=== PATIENT | male | born 1985 | race Two or more races ===

== ENCOUNTER 2019-04-30 07:26 | Day surgery (SDC) | payer OTHER ==
[~2019-04-30] VITALS: Ht 167.6 cm; Wt 84.8 kg
[~2019-04-30 07:26] MED LIST: NS 1,000 ML IV SCH
[2019-04-30] MEDS ORDERED: LIDOCAINE 2% INJ 100 MG/5 ML SDV (FOR ANES.) As Ordered ONE (08:53)
[2019-04-30] MEDS ORDERED: propofoL 200 MG/20 ML VIAL As Ordered ONE (08:53)
--- NOTE | 2019-04-30 09:43 | ROOR ---
Patient Name: Melody Fernandez Procedure Date: 04/30/2019 9:15 AM Date of : 1985 Age: 34 Room: [facility] Gender: Male Note Status: Finalized Procedure: Total Colonoscopy to Cecum Indications: Rectal bleeding Providers: Nelson Gloden MD Referring MD: SIENA WREN MD Requesting Provider: Medicines: Monitored Anesthesia Care Complications: No immediate complications. Procedure: Pre-Anesthesia Assessment: - The heart rate, respiratory rate, oxygen saturations, blood pressure, adequacy of pulmonary ventilation, and response to care were monitored throughout the procedure. The Colonoscope was introduced through the anus and advanced to the cecum, identified by appendiceal orifice and ileocecal valve. The colonoscopy was performed without difficulty. The patient tolerated the procedure well. The quality of the bowel preparation was excellent. Findings: The perianal and digital rectal examinations were normal. No other significant abnormalities were identified in a careful examination of the remainder of the colon. The exam was otherwise without abnormality on direct and retroflexion views. Impression: - The examination was otherwise normal on direct and retroflexion views. - No specimens collected. - The exam was otherwise normal to the cecum. Recommendation: - Discharge patient to home. - High fiber diet. - Repeat colonoscopy at age 48 for screening purposes. - Return to referring physician. - The findings and recommendations were discussed with the patient's family. Nelson Golden MD Nelson Golden MD 04/30/2019 9:43:24 AM Electronically signed by Nelson Golden MD Number of Addenda: 0 Note Initiated On: 04/30/2019 9:15 AM Estimated Blood Loss: Estimated blood loss: none.
[2019-04-30 10:02] VITALS: BP 124/83
== END 2019-04-30 10:12 | disposition home or self-care (01) ==
LOC: M OPP 07:26
PROVIDERS: ATTEND Internal Medicine Gastroenterology
DX: K62.5 Hemorrhage of anus and rectum (principal)

== ENCOUNTER 2019-07-28 12:39 | Emergency (ER) | payer OTHER ==
[~2019-07-28] VITALS: Ht 160 cm; Wt 90.6 kg
--- NOTE | 2019-07-28 13:50 | REP ---
Clinical: Nontraumatic heel pain Technique: AP, lateral, bilateral oblique views right foot . Findings: The osseous structures and joint spaces are intact and normal. There is no evidence for acute fracture or dislocation. Surrounding soft tissues are unremarkable. No subcutaneous emphysema or radiodense foreign body. Impression: Normal right foot radiograph series. Electronically Signed by Noe Smith MD 07/28/2019 01:41 P
[2019-07-28 14:15] VITALS: BP 138/83
== END 2019-07-28 14:19 | disposition home or self-care (01) ==
LOC: M ED 12:39
DX: M79.671 Pain in right foot (principal)

== ENCOUNTER 2019-12-13 19:48 | Emergency (ER) | payer OTHER ==
[~2019-12-13] VITALS: Ht 167.6 cm; Wt 93.1 kg
[2019-12-13 20:39] LABS: HEMATOCRIT 46.4 % (42.0-52.0); HEMOGLOBIN 15.1 g/dl (13.5-17.5); MEAN CORPUSCULAR HGB CONC 32.5 g/dl (32.0-36.5); MEAN CORPUSCULAR VOLUME 92.1 fl (80.0-96.0); PLATELET COUNT, AUTOMATED 158 10^3/uL (150-450); RED BLOOD COUNT 5.04 10^6/uL (4.30-6.10); WHITE BLOOD COUNT 6.5 10^3/uL (4.0-10.0)
[2019-12-13 20:57] LABS: ERYTHROCYTE SEDIMENTATION RATE 1 mm/hr (0-15)
[2019-12-13 20:58] LABS: C REACTIVE PROTEIN QUANTITATIV < 0.30 MG/DL (0.00-0.30); URIC ACID 7.1 MG/DL (3.5-7.2)
[2019-12-13] MEDS ORDERED: INDO50CA91 PO (21:21)
[2019-12-13 21:25] VITALS: BP 142/94
--- NOTE | 2019-12-13 21:47 | REPVR ---
PROCEDURE INFORMATION: Exam: XR Right Ankle Exam date and time: 12/13/2019 8:20 PM Age: 34 years old Clinical indication: Other: Pain TECHNIQUE: Imaging protocol: XR Right ankle. Views: 1 or 2 views. COMPARISON: CR Foot, complete 07/28/2019 1:22 PM FINDINGS: Bones/joints: Broad-based exostosis projecting off the posteromedial aspect of the distal tibia. Traction osteophyte on the dorsal calcaneus at the Achilles tendon insertion site. No fracture. Soft tissues: Normal. IMPRESSION: 1. No acute findings. 2. Benign exostosis projecting off the distal tibia posteromedially. PROCEDURE INFORMATION: Exam: XR Left Ankle Exam date and time: 12/13/2019 8:20 PM Age: 34 years old Clinical indication: Other: Pain TECHNIQUE: Imaging protocol: XR Left ankle. Views: 1 or 2 views. COMPARISON: CR Foot, complete 07/28/2019 1:22 PM FINDINGS: Bones/joints: Traction osteophyte on the dorsal calcaneus at the Achilles tendon insertion site. No fracture. Soft tissues: Normal. IMPRESSION: 1. No acute findings. Electronically signed by: Savanah Feliz On 12/13/2019 21:47:32 PM
[2019-12-15 09:14] LABS: TOTAL 25(OH) VITAMIN D 20.8 NG/ML (30.0-100.0)
== END 2019-12-13 21:30 | disposition home or self-care (01) ==
LOC: M ED 19:48
DX: M19.071 Primary osteoarthritis, right ankle and foot (principal)

== ENCOUNTER 2020-06-30 06:44 | Day surgery (SDC) | payer OTHER ==
[~2020-06-30] VITALS: Ht 167.6 cm; Wt 93.0 kg
[~2020-06-30 06:44] MED LIST changes: +INDO50CA91 PO; +NAPR500T6 PO; -NS 1,000 ML IV SCH
[2020-06-30] MEDS ORDERED: ceFAZolin SOD 2 GM in IV 1 EA IV ONE (07:00)
[2020-06-30] MEDS ORDERED: LR 1,000 ML IV ONE (07:00)
[2020-06-30] MEDS ORDERED: dexameTHASONE 4 MG/ML 1ML VIAL (J1100 PER 1MG) As Ordered ONE (08:30)
[2020-06-30] MEDS ORDERED: BUPIVACAINE HCL 0.5% 10ML VIAL As Ordered ONE (08:30)
[2020-06-30] MEDS ORDERED: LIDOCAINE 1% MDV 20ML VIAL As Ordered ONE (08:31)
[2020-06-30] MEDS ORDERED: fentaNYL 250 MCG/5 ML INJECTION (J3010) As Ordered ONE (08:41)
[2020-06-30] MEDS ORDERED: MIDAZOLAM INJ 2MG/2ML VIAL (J2250 PER 1MG) As Ordered ONE (08:42)
[2020-06-30] MEDS ORDERED: LIDOCAINE 2% 100MG/5ML SDV (FOR ANES.) As Ordered ONE (09:01)
[2020-06-30] MEDS ORDERED: propofoL 200 MG/20 ML VIAL As Ordered ONE (09:01)
--- NOTE | 2020-06-30 10:04 | RO ---
OPERATIVE NOTE DATE OF OPERATION: 06/30/2020 PREOPERATIVE DIAGNOSIS: Right foot chronic Achilles tendonitis. POSTOPERATIVE DIAGNOSIS: Right foot chronic Achilles tendonitis. PROCEDURE: Right foot topaz procedure, Achilles tendon. SURGEON: Jigar Chu DPM CLERK OF SCALES: None. ANESTHESIA: Monitored anesthesia care, preop injection of 20 mL of 1:1 mixture of 1% Lidocaine plain and 0.5% Marcaine plain. ESTIMATED BLOOD LOSS: Minimal. MATERIALS: None. COMPLICATIONS: None. CONDITION: Stable. INDICATIONS: Melody Huitron is a 35-year-old male who presents to [facility] with painful chronic Achilles tendonitis. He has undergone numerous conservative treatments without relief. He presents today for surgical correction. Patient site and side were identified in preoperative area. Consent was reviewed and obtained. Risks, complications and alternatives to the procedure were explained to the patient in detail, all questions were answered. DESCRIPTION OF PROCEDURE: The patient was brought to the operating room and placed on the operating table in prone position. Monitored anesthesia care was delivered by the anesthesia team. Preoperative injection of 20 mL of 1:1 mixture of 1% Lidocaine plain and 0.5% Marcaine plain was injected into the right calf. Tourniquet was applied to the calf and inflated at 250 mmHg. A grid around the Achilles tendon was made using skin marker with dots approximately 7 mm apart. A 0.62 K-wire was used to perforate the skin to allow the microdebrider to be placed and then using the Severance microdebriding wand each dot on the grid was debrided using the 0.5 second debride time delivered by the wand. Following this sterile dressings were applied. Tourniquet was deflated and patient was brought to PACU with vital signs stable and neurovascular status intact. He will be partial weightbearing and follow up in office in two days.
[2020-06-30 10:30] VITALS: BP 125/72
== END 2020-06-30 11:04 | disposition home or self-care (01) ==
LOC: M SDC 06:44
PROVIDERS: ATTEND Podiatrist Foot & Ankle Surgery
DX: M76.61 Achilles tendinitis, right leg (principal); K21.9 Gastro-esophageal reflux disease without esophagitis; Z79.899 Other long term (current) drug therapy
CPT/HCPCS: 28899; J0690; J1100; J2250; J3010

== ENCOUNTER 2020-12-01 09:43 | Day surgery (SDC) | payer OTHER ==
[~2020-12-01] VITALS: Ht 167.6 cm; Wt 93.9 kg
[~2020-12-01 09:43] MED LIST changes: +LIDOCAINE 1% MDV 20ML VIAL SQ PRN; +LR 1,000 ML IV ONE; +ceFAZolin SOD 1 GM in D5W MINI-BAG PLUS 50 ML IV ONE; +propofoL 500 MG/50 ML VIAL As Ordered ONE
[2020-12-01] MEDS ORDERED: AMOX500C PO (12:43)
[2020-12-01] MEDS ORDERED: IBUP200C25 PO (12:43)
[2020-12-01] MEDS ORDERED: LIDOCAINE 2% 100MG/5ML SDV (FOR ANES.) As Ordered ONE (13:43)
[2020-12-01] MEDS ORDERED: fentaNYL 100 MCG/2 ML INJECTION (J3010) As Ordered ONE (13:44)
[2020-12-01] MEDS ORDERED: MIDAZOLAM INJ 2MG/2ML VIAL (J2250 PER 1MG) As Ordered ONE (13:44)
[2020-12-01] MEDS ORDERED: LIDOCAINE 1% SDV 30ML VIAL As Ordered ONE (14:59)
[2020-12-01] MEDS ORDERED: BUPIVACAINE HCL 0.5% 10ML VIAL As Ordered ONE ×2 (14:59→15:05)
[2020-12-01] MEDS ORDERED: dexameTHASONE 4 MG/ML 1ML VIAL (J1100 PER 1MG) As Ordered ONE ×2 (14:59→15:05)
[2020-12-01] MEDS ORDERED: OXYC1TAB23 PO (16:29)
[2020-12-01 17:00] VITALS: BP 157/90
--- NOTE | 2020-12-02 10:02 | RO ---
OPERATIVE NOTE DATE OF OPERATION: 12/01/2020 PREOPERATIVE DIAGNOSIS: Bilateral gastrocnemius equinus. POSTOPERATIVE DIAGNOSIS: Bilateral gastrocnemius equinus. PROCEDURE: Bilateral gastrocnemius recession. SURGEON: Jigar Chu DPM HEEL SCORER: ANESTHESIA: Monitored anesthesia care, preop injection of 30 mL of 1:1 mixture of 1% Lidocaine plain and 0.5% Marcaine plain. ESTIMATED BLOOD LOSS: Minimal. MATERIALS: 3-0 and 4-0 Vicryl, 4-0 nylon. INJECTABLES: 2 mL Decadron 4 mg per mL. COMPLICATIONS: None. CONDITION: Stable. INDICATIONS: Melody Huitron is a 35-year-old male who presents with painful Achilles tendon bilateral feet. He presents today for surgical correction. Patient site and side were identified and marked in preoperative area. Consent was reviewed and obtained. Risks, complications and alternatives to the procedure were explained to the patient in detail, all questions were answered. DESCRIPTION OF PROCEDURE: The patient was brought to the operating room and placed on the operating table in prone position. Monitored anesthesia care was delivered by the anesthesia team. Preop injection of 30 mL of 1:1 mixture of 1% Lidocaine plain and 0.5% Marcaine plain were injected into both calves. Both legs were prepped and draped. Tourniquets were applied to the thighs, inflated to 250 mmHg. On both calves linear incision was made just medial to the midline and carried through with #15 blade. The gastrocnemius tendon was identified and transected taking care not to cut the underlying soleus muscle beneath it. Care was taken to protect the sural nerve. Improvement in dorsiflexion was immediately noted bilaterally. Site was irrigated with normal saline. Closure was performed with 3-0 and 4-0 Vicryl and 4-0 nylon. Sterile dressings were applied. Tourniquets deflated. The patient was brought to PACU with vital signs stable and neurovascular status intact. He will be partial weightbearing and follow up in office next week.
== END 2020-12-01 17:15 | disposition home or self-care (01) ==
LOC: M SDC 09:43
PROVIDERS: ATTEND Podiatrist Foot & Ankle Surgery
DX: M67.01 Short Achilles tendon (acquired), right ankle (principal); M67.02 Short Achilles tendon (acquired), left ankle; Z79.899 Other long term (current) drug therapy
CPT/HCPCS: 27687; 97116; J0690; J1100; J2250; J3010

== ENCOUNTER 2020-12-29 06:41 | Day surgery (SDC) | payer OTHER ==
[~2020-12-29] VITALS: Ht 167.6 cm; Wt 95.3 kg
[~2020-12-29 06:41] MED LIST changes: +AMOX500C PO; +IBUP200C25 PO; -LIDOCAINE 1% MDV 20ML VIAL SQ PRN; +LIDOCAINE 2% 100MG/5ML SDV (FOR ANES.) As Ordered ONE; -LR 1,000 ML IV ONE; +NS 1,000 ML IV ONE; +OXYC1TAB23 PO; -ceFAZolin SOD 1 GM in D5W MINI-BAG PLUS 50 ML IV ONE; +fentaNYL 100 MCG/2 ML INJECTION (J3010) As Ordered ONE; +propofoL 200 MG/20 ML VIAL As Ordered ONE; -propofoL 500 MG/50 ML VIAL As Ordered ONE
--- OUTSIDE RECORDS SUMMARY | 2020-12-29 06:46 | CCD | Continuity of Care Document ---
Author Author Melody KAPLAN DPM Organization Unknown Address [address] [facility] [address], [address] [place] [address] Phone [phone] Care Team Providers Care Pedodontist Name Role Phone Aureliano Boles, [facility] AUTM [phone] [facility] Unavailable [facility] Problems Active Problems Provider Date Tendon contracture Jigar Kaplan DPM Onset: 10/10/2019 Other synovitis and tenosynovitis, right ankle and foot Andr lorene Kaplan DPM Onset: 10/10/2019 Calcaneal spur Jigar Kaplan DPM Onset: 10/10/2019 Tendon contracture Jigar Kaplan DPM Onset: 12/10/2020 Social History Type Date Description Comments Sex Unknown ETOH Use Rarely consumes alcohol Tobacco Use Start: Unknown Patient has never smoked Allergies and adverse reactions Description No Known Drug Allergies Medications Active Medications SIG Qnty Indications Ordering Provide r Date Hydrocodone-Acetaminophen 5-325mg Tablets 1 tablets by mouth every 8 hours as needed pain 20tabs Jigar Kaplan DPM 08/03/2020 Prednisone 20mg Tablets 4 tablets day 1-3 (2 in the morning, 1 noon, 1 evening), 3 tablets day 4-7 , 2 tablets day 8-10, 1 tablet day 10-14 follow 35tabs Jigar Kaplan DPM 04/2019 Diclofenac Sodium 1% Gel apply 1 gram to feet 2-3 times daily 500units Jigar Kaplan DPM 2019 Naproxen 500mg Tablets 1 tab twice daily with food 60tabs Jigar Kaplan DPM 10/10/2019 Immunizations Description No Information Available Vital Signs Date Vital Result Comment 09/23/2020 11:13am Height 66 inches 5'6" Weight 201.00 lb BP Systolic 144 mmHg BP Diastolic 92 mmHg Heart Rate 74 /min BMI (Body Mass Index) 32.4 kg/m2 03/09/2020 9:00am Height 66 inches 5'6" Weight 190.00 lb BP Systolic 118 mmHg BP Diastolic 90 mmHg Heart Rate 70 /min BMI (Body Mass Index) 30.7 kg/m2 Results Description No Information Available Procedures Date Code Description Status 12/01/2020 72133 Gastrocnemius Recession Complete d 12/01/2020 51148 Gastrocnemius Recession Complete d 09/23/2020 25481 Office/Outpatient Established Lo w MDM 20-29 Min Completed 06/30/2020 85255 Repair Achilles Tendon Primary C ompleted Medical Devices Description No Information Available Encounters Type Date Location Provider Dx Diagnosis Office Visit 12/06/2020 11:00a [facility] Jigar Kaplan DPM M67.00 Short Achilles tendon (acquired), unspecified ankle Z48.89 Encounter for other specifie d surgical aftercare Office Visit 09/23/2020 11:15a [facility] Jigar Kaplan DPM M67.00 Short Achilles tendon (acquired), unspecified ankle M65.879 Other synovitis and tenosyno vitis, unsp ankle and foot Office Visit 08/19/2020 11:15a [facility] Jigar Kaplan DPM Z48.89 Encounter for other specified surgical aftercare Office Visit 07/15/2020 8:45a [facility] Jigar Kaplan DPM M67.01 Short Achilles tendon (acquired), right ankle Assessments Date Code Description Provider 12/06/2020 M67.00 Short Achilles tendon (acquired) , unspecified ankle Jigar Kaplan DPM 12/06/2020 Z48.89 Encounter for other specified [place] Jigar Kaplan DPM 12/01/2020 M67.01 Short Achilles tendon (acquired) , right ankle Jigar Kaplan DPM 12/01/2020 M67.02 Short Achilles tendon (acquired) , left ankle Jigar Kaplan, DPM 09/23/2020 M67.00 Short Achilles tendon (acquired) , unspecified ankle Jigar Kaplan, DPM 09/23/2020 M65.879 Other synovitis and tenosynovitis, unspecified ankle and foot Jigar Kaplan, DPM 08/19/2020 Z48.89 Encounter for other specified [place] aftercare Jigar Kaplan, DPM 07/15/2020 M67.01 Short Achilles tendon (acquired) , right ankle Jigar Kaplan, DPM 07/01/2020 M67.01 Short Achilles tendon (acquired) , right ankle Jigar Kaplan, DPM 07/01/2020 Z48.89 Encounter for other specified [place] aftercare Jigar Kaplan, BHARATM 06/30/2020 M67.01 Short Achilles tendon (acquired) , right ankle Jigar Kaplan DPM Plan of Treatment Future Appointment(s):* 12/20/2020 11:00 am - Jigar Kaplan DPM at [place] [facility] Functional Status Description No Information Available Mental Status Description No Information Available Referrals Refer to Dr Reason for Referral Status Appt Date Jigar Kaplan DPM SX Created [address] [place] [address] [phone] Jigar Kaplan DPM Created [address] [place] [address] [phone] Jigar Kaplan DPM Created [address] [place] [phone]
--- OUTSIDE RECORDS SUMMARY | 2020-12-29 06:46 | CCD | Continuity of Care Document ---
Author Author Melody GOLDEN M.D Organization Unknown Address [address] [place] [id number] Phone [phone] Care Team Providers Care Inspector Aligning Name Role Phone Tom Spencer AUTM Problems Active Problems Provider Date Gastroesophageal reflux disease Nelson Golden M.D. Ons et: 12/14/2020 Hemorrhage of rectum and anus Nelson Golden M.D. Onset : 04/10/2019 Social History Type Date Description Comments Sex Unknown ETOH Use Never used alcohol Tobacco Use Start: Unknown Patient has never smoked Allergies and adverse reactions Description No Known Drug Allergies Medications Active Medications SIG Qnty Indications Ordering Provide r Date Gaviscon Extra Strength 160-105mg Chewtabs 1 tab by mouth four times a day before meals,and at bedtime 360u nits Nelson Golden M.D. 12/14/2020 Proctosol HC 2.5% Cream apply to rectum 2- 3 times a day as needed for rectal bleeding 28.35units Nelson Golden M.D. 04/30/2019 Oxycodone-Acetaminophen 5-325mg Tablets Unknown Hydrocodone Bitartrate/Acetaminophen 5-325mg Tablets Unknown Ibuprofen 800mg Tablets Unknown Pantoprazole Sodium 40mg Tablets D R 1 tab by mouth before meals 180tabs Nelson Golden M.D. 0 Naproxen 500mg Tablets Unknown Voltaren 1% Gel Unknown Immunizations Description No Information Available Vital Signs Date Vital Result Comment 12/14/2020 9:35am Height 66 inches 5'6" Weight 205.00 lb BP Systolic 130 mmHg BP Diastolic 82 mmHg Heart Rate 69 /min BMI (Body Mass Index) 33.1 kg/m2 Weight 92.988 kg Body Temperature 97.3 F 04/10/2019 2:01pm Height 66 inches 5'6" Weight 190.00 lb BP Systolic 128 mmHg BP Diastolic 76 mmHg Heart Rate 64 /min BMI (Body Mass Index) 30.7 kg/m2 Weight 86.184 kg Results Description No Information Available Procedures Description No Information Available Medical Devices Description No Information Available Encounters Description No Information Available Assessments Date Code Description Provider 12/14/2020 K21.9 Gastroesophageal reflux disease Nelson Golden M.D. Plan of Treatment Future Appointment(s):* 12/29/2020 7:30 am - Nelson Golden M.D. at [facility] 12/14/2020 - Nelson Golden M.D.* K21.9 Gastroesophageal reflux disease* Comments:* 35 yo ADMS who was referred for a colonoscopy due to a h/o rectal bleeding. No apparent hemorroids. No weight loss. No c/o abdominal pain, weight loss, change in bowel habits, or rectal bleeding. No family h/o colon cancer. No h/o chest pain, or sob. His colonoscopy revealed hemorrhoids.He is now here for refractory heartburn. No dysphagia. He has nighttime heartburn. Pantoprazole once a day is not helping enough. Plan:1. Egd2. PPI bid3. Gaviscon Functional Status Description No Information Available Mental Status Description No Information Available Referrals Refer to Dr Reason for Referral Status Appt Date Nelson Golden M.D. Created [address] [place] [phone]
--- OUTSIDE RECORDS SUMMARY | 2020-12-29 06:46 | CCD ---
Author Author [facility] Organization [facility] Address Unknown Phone Unavailable Care Team Providers Care Agriscience Teacher Name Role Phone Annie KAPLAN DPM Unavailable Unavailable Annie KAPLAN DPM Unavailable Unavailable Annie KAPLAN DPM Unavailable Unavailable Annie KAPLAN DPM Unavailable Unavailable Annie KAPLAN DPM Unavailable Unavailable Annie KAPLAN DPM Unavailable Unavailable Annie KAPLAN DPM Unavailable Unavailable Annie KAPLAN DPM Unavailable Unavailable Annie KAPLAN DPM Unavailable Unavailable Annie KAPLAN DPM Unavailable Unavailable Annie KAPLAN DPM Unavailable Unavailable Annie KAPLAN DPM Unavailable Unavailable Annie KAPLAN DPM Unavailable Unavailable Annie KAPLAN DPM Unavailable Unavailable Annie KAPLAN DPM Unavailable Unavailable Annie KAPLAN DPM Unavailable Unavailable Annie KAPLAN DPM Unavailable Unavailable Annie KAPLAN DPM Unavailable Unavailable Annie KAPLAN DPM Unavailable Unavailable Annie KAPLAN DPM Unavailable Unavailable Annie KAPLAN DPM Unavailable Unavailable Annie KAPLAN DPM Unavailable Unavailable Annie KAPLAN DPM Unavailable Unavailable Annie KAPLAN DPM Unavailable Unavailable Annie KAPLAN DPM Unavailable Unavailable Annie KAPLAN DPM Unavailable Unavailable Annie KAPLAN DPM Unavailable Unavailable Annie KAPLAN DPM Unavailable Unavailable Annie KAPLAN DPM Unavailable Unavailable Annie KAPLAN DPM Unavailable Unavailable Annie KAPLAN DPM Unavailable Unavailable Re-disclosure Warning The records that you are about to access may contain information from federally-assisted alcohol or drug abuse programs. If such information is present, then the following federally mandated warning applies: This information has been disclosed to you from records protected by federal confidentiality rules (42 CFR part 2). The federal rules prohibit you from making any further disclosure of this information unless further disclosure is expressly permitted by the written consent of the person to whom it pertains or as otherwise permitted by 42 CFR part 2. A general authorization for the release of medical or other information is NOT sufficient for this purpose. The Federal rules restrict any use of the information to criminally investigate or prosecute any alcohol or drug abuse patient.The records that you are about to access may contain highly sensitive health information, the redisclosure of which is protected by Article 27-F of the [facility] Public Health law. If you continue you may have access to information: Regarding HIV / AIDS; Provided by facilities licensed or operated by the [facility] Office of Mental Health; or Provided by the [facility] Office for People With Developmental Disabilities. If such information is present, then the following [facility] mandated warning applies: This information has been disclosed to you from confidential records which are protected by state law. State law prohibits you from making any further disclosure of this information without the specific written consent of the person to whom it pertains, or as otherwise permitted by law. Any unauthorized further disclosure in violation of state law may result in a fine or snf sentence or both. A general authorization for the release of medical or other information is NOT sufficient authorization for further disc losure. Encounters Encounter Providers Location Date Indications Data Source(s ) Office Visit Attender: BRANDON KAPLAN DPM [place] [facility] 06/2020 11:00:00 AM EDT [facility] Outpatient Attender: BRANDON KAPLAN DPM [place] [facility] 09/03 11:15:00 AM EDT [facility] 11:[facility]00 AM EDT [facility] Office Visit Attender[facility] BRANDON KAPLAN [facility] 07/03 08:45:00 AM EDT [facility] Outpatient Attender: BRANDON KAPLAN [facility] 07/2020 08:00:00 AM EST [facility] Outpatient Attender: BRANDON KAPLAN [facility] 04/2019 08:00:00 AM EST [facility] Outpatient Attender: BRANDON KAPLAN [facility] 12/04 09:00:00 AM EDT [facility] Medications Medication Brand Name Start Date Product Form Dose Route Admi nistrative Instructions Pharmacy Instructions Status Indications Reaction Description Data Source(s) Aluminum Hydroxide 160 MG / magnesium carbonate 105 MG Chewable Tablet Gaviscon Extra Strength 12/14/2020 12:00:00 AM EDT ORAL active [facility] ([facility]) Acetaminophen 325 MG / Hydrocodone Bitartrate 5 MG Ora l Tablet Hydrocodone-Acetaminophen 08/03/2020 12:00:00 AM EDT ORAL active [facility] Prednisone 20 MG Oral Tablet Prednisone 02/04/2020 12:00:00 AM EST active [facility] Insurance Providers Payer name Policy type / Coverage type Policy ID Covered alliance party ID Covered alliance party's relationship to gordillo Policy Gordillo Plan Information [facility] [employer] [id number] SP [id number] [facility] [employer] [id number] SP [id number] [facility] O [id number] S [id number] Problems, Conditions, and Diagnoses Code Display Name Description Problem Type Effective Dates Data Source(s) 086723684 Gastroesophageal reflux disease Gastroesophageal reflux disease Problem 12/14/2020 12:00:00 AM EDT [facility] 249040436 Tendon contracture Tendon contracture Problem 10/2020 12:00:00 AM EDT [facility] Surgeries/Procedures Procedure Description Date Indications Data Source(s) GASTROCNEMIUS RECESSION 12/01/2020 12:00:00 AM EDT [facility] GASTROCNEMIUS RECESSION 12/01/2020 12:00:00 AM EDT [facility] OFFICE OUTPATIENT VISIT 15 MINUTES 09/23/2020 12:00:00 AM EDT [facility] REPAIR PRIMARY OPEN/PRQ RUPTURED ACHILLES TENDON 06/30 12:00:00 AM EDT [facility] UNLISTED PROCEDURE FOOT/TOES 06/30/2020 12:00:00 AM ED T [facility] Results ID Date Data Source [id number] 02/17/2020 12:00:00 AM EST [facility] Name Value Range Interpretation Code Description Data Bea rce(s) Supporting Document(s) SARS coronavirus 2 Ag [facility] This lab was ordered by [facility] and reported by [facility]. ID Date Data Source [id number] 01/19/2020 12:00:00 AM EST [facility] Name Value Range Interpretation Code Description Data Bea rce(s) Supporting Document(s) SARS coronavirus 2 RNA [Presence] in Res piratory specimen by CAROL with probe detection [facility] This lab was ordered by [facility] and reported by [facility]. Procedure Social History No Information Vital Signs ID Date Data Source UNK Name Value Range Interpretation Code Description Data Source(s) Systolic blood pressure 130 mm[Hg] 130 mm[Hg] [facility] ([facility]) Body weight 205.00 [lb_av] 205.00 [lb_av] [facility] ([facility]) Body height 66 [in_i] 66 [in_i] [facility] 5'6" Diastolic blood pressure 82 mm[Hg] 82 mm[Hg] [facility]) Heart rate 69 /min 69 /min [facility] Body mass index (BMI) [Ratio] 33.1 kg/m2 33.1 k g/m2 [facility]) Body weight 92.988 kg 92.988 kg [facility] Body temperature 97.3 [degF] 97.3 [degF] [facility]) Body height 66 [in_i] 66 [in_i] [facility] 5'6" Body weight 201.00 [lb_av] 201.00 [lb_av] [facility] ([facility] Systolic blood pressure 144 mm[Hg] 144 mm[Hg] [facility] Diastolic blood pressure 92 mm[Hg] 92 mm[Hg] [facility] Body mass index (BMI) [Ratio] 32.4 kg/m2 32.4 k g/m2 [facility] Heart rate 74 /min 74 /min [facility] Heart rate 70 /min 70 /min [facility] Body height 66 [in_i] 66 [in_i] [facility] 5'6" Body weight 190.00 [lb_av] 190.00 [lb_av] [facility] Body mass index (BMI) [Ratio] 30.7 kg/m2 30.7 k g/m2 [facility] Systolic blood pressure 118 mm[Hg] 118 mm[Hg] [facility] Diastolic blood pressure 90 mm[Hg] 90 mm[Hg] [facility]
--- OUTSIDE RECORDS SUMMARY | 2020-12-29 06:46 | CCD | Continuity of Care Document ---
Author Author Melody KAPLAN DPM Organization Unknown Address [address] [place] [address], [address] [place] [address] Phone [phone] Care Team Providers Care Network Architect Name Role Phone Aureliano Boles, [facility] AUTM [phone] [facility] AUTM Unavailable Dee'[facility] AUTM Problems Active Problems Provider Date Tendon [...] Available Procedures Date Code Description Status 12/01/2020 75922 Gastrocnemius Recession Complete d 12/01/2020 08278 Gastrocnemius Recession Complete d 09/23/2020 53449 Office/Outpatient Established Lo w MDM 20-29 Min Completed 06/30/2020 79689 Repair Achilles Tendon Primary C ompleted Medical Devices Description No Information Available Encounters Type Date Location Provider Dx Diagnosis Office Visit 12/06/2020 11:00a [place] [facility] Jigar Kaplan DPM M67.00 Short Achilles tendon (acquired), unspecified ankle Z48.89 Encounter for other specifie d surgical aftercare Office Visit 09/23/2020 11:15a [place] [facility] Jigar Kaplan DPM M67.00 Short Achilles tendon (acquired), unspecified ankle M65.879 Other synovitis and tenosyno vitis, unsp ankle and foot Office Visit 08/19/2020 11:15a [place] [facility] Jigar Kaplan DPM Z48.89 Encounter for other specified surgical aftercare Office Visit 07/15/2020 8:45a [place] [facility] Jigar Kaplan DPM M67.01 Short Achilles [...] Kaplan DPM Plan of Treatment Future Appointment(s):* 01/10/2021 10:45 am - Jigar Kaplan DPM at [place] [facility] Functional Status Description No Information Available Mental Status Description No Information Available Referrals Refer to Dr Reason for Referral Status Appt Date Jigar Kaplan DPM SX Created [address] [place] [address] [phone] Jigar Kaplan DPM Created [address] [place] [address] [phone] Jigar Kaplan DPM Created [address] [place] [address] [phone]
--- OUTSIDE RECORDS SUMMARY | 2020-12-29 06:46 | CCD | Continuity of Care Document ---
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 Other synovitis and tenosynovitis, right ankle and foot Andr lorene Kaplan DPM Onset: 10/10/2019 Calcaneal spur Jigar Kaplan DPM Onset: 10/10/2019 Social History Type Date Description Comments Sex [...] Available Procedures Date Code Description Status 12/01/2020 09269 Gastrocnemius Recession Complete d 12/01/2020 99931 Gastrocnemius Recession Complete d 09/23/2020 20444 Office/Outpatient Established Lo w MDM 20-29 Min Completed 06/30/2020 84109 Repair Achilles Tendon Primary C ompleted Medical Devices Description No Information Available Encounters Type Date Location Provider Dx Diagnosis Office Visit 09/23/2020 11:15a [place] [facility] Jigar Kaplan DPM M67.00 Short Achilles tendon (acquired), unspecified ankle M65.879 Other synovitis and tenosyno vitis, unsp ankle and foot Office Visit 08/19/2020 11:15a [place] [facility] Jigar Kaplan DPM Z48.89 Encounter for other specified surgical aftercare Office Visit 07/15/2020 8:45a [place] [facility] Jigar Kaplan DPM M67.01 Short Achilles tendon (acquired), right ankle Assessments Date Code Description Provider 12/01/2020 M67.01 Short Achilles tendon (acquired) , right ankle Jigar Kaplan DPM 12/01/2020 M67.02 Short Achilles tendon (acquired) , left ankle Jigar Kaplan DPM 09/23/2020 M67.00 Short Achilles tendon (acquired) , unspecified ankle Jigar Kaplan DPM 09/23/2020 M65.879 Other synovitis and tenosynovitis, unspecified ankle and foot Jigar Kaplan DPM 08/19/2020 Z48.89 Encounter for other specified [place] aftercare Jigar Kaplan DPM 07/15/2020 M67.01 Short Achilles tendon (acquired) , right ankle Jigar Kaplan DPM 07/01/2020 M67.01 Short Achilles tendon (acquired) , right ankle Jigar Kaplan DPM 07/01/2020 Z48.89 Encounter for other specified [place] aftercare Jigar Kaplan DPM 06/30/2020 M67.01 Short Achilles tendon (acquired) , right ankle Jigar Kaplan DPM Plan of Treatment Future Appointment(s):* 12/20/2020 11:00 am - Jigar Kaplan DPM at [place] [facility] Functional Status Description No Information Available Mental Status Description No Information Available Referrals Refer to Dr Reason for Referral Status Appt Date Jigar Kaplan DPM SX Created [address] [address] [phone] Jigar Kaplan DPM Created [address] [address] [phone] Jigar Kaplan DPM Created [address] [address] [phone]
--- NOTE | 2020-12-29 07:44 | ROOR ---
Patient Name: Melody Fernandez Procedure Date: 12/29/2020 7:28 AM Date of : 1985 Age: 35 Room: [facility] Gender: Male Note Status: Finalized Procedure: Upper Endoscopy + Biopsies Indications: Heartburn, Failure to respond to medical treatment, Exclusion of Mariano's esophagus Providers: Nelson Golden MD Referring MD: CHUNG REYES MD Requesting Provider: Medicines: Monitored Anesthesia Care Complications: No immediate complications. Procedure: Pre-Anesthesia Assessment: - The heart rate, respiratory rate, oxygen saturations, blood pressure, adequacy of pulmonary ventilation, and response to care were monitored throughout the procedure. The Endoscope was introduced through the mouth, and advanced to the second part of duodenum. The upper GI endoscopy was accomplished without difficulty. The patient tolerated the procedure well. Findings: The Z-line was regular and was found 35 cm from the incisors. Multiple biopsies were obtained with cold forceps for evaluation to rule out Mariano's Esophagus randomly at the gastroesophageal junction. A small hiatal hernia was present. No other significant abnormalities were identified in a careful examination of the stomach. Biopsies were taken with a cold forceps in the gastric antrum for Helicobacter pylori testing. The exam of the duodenum was otherwise normal. Impression: - Z-line regular, 35 cm from the incisors. - Small hiatal hernia. - Multiple biopsies were obtained at the gastroesophageal junction. - Biopsies were taken with a cold forceps for Helicobacter pylori testing. - The examination was otherwise normal. Recommendation: - Patient has a contact number available for emergencies. The signs and symptoms of potential delayed complications were discussed with the patient. Return to normal activities tomorrow. Written discharge instructions were provided to the patient. - High fiber diet. - Discharge patient to home. - Continue present medications. - Await pathology results. - Telephone GI clinic for pathology results in 1 week. - The findings and recommendations were discussed with the patient. Procedure Code(s): --- Professional --- 69948, Esophagogastroduodenoscopy, flexible, transoral; with biopsy, single or multiple Diagnosis Code(s): --- Professional --- K44.9, Diaphragmatic hernia without obstruction or gangrene R12, Heartburn CPT copyright 2019 [employer]. All rights reserved. The codes documented in this report are preliminary and upon death surveys coder review may be revised to meet current compliance requirements. Nelson Golden MD Nelson Golden MD 12/29/2020 7:43:42 AM Electronically signed by Nelson Golden MD Number of Addenda: 0 Note Initiated On: 12/29/2020 7:28 AM Estimated Blood Loss: Estimated blood loss: none.
[2020-12-29 08:00] VITALS: BP 161/93
== END 2020-12-29 08:18 | disposition home or self-care (01) ==
LOC: M OPP 06:41
PROVIDERS: ATTEND Internal Medicine Gastroenterology
DX: K62.5 Hemorrhage of anus and rectum (principal); K44.9 Diaphragmatic hernia without obstruction or gangrene; G21.9 Secondary parkinsonism, unspecified; R12 Heartburn; Z79.891 Long term (current) use of opiate analgesic; Z79.899 Other long term (current) drug therapy
CPT/HCPCS: 43239; 88305; J3010